=== PATIENT | female | born 1935 | race Two or more races ===

== ENCOUNTER 2018-09-30 07:47 | Day surgery (SDC) | payer MEDICARE ==
[~2018-09-30] VITALS: Ht 147.3 cm; Wt 48.1 kg
[~2018-09-30 07:47] MED LIST: ASCO500 PO; BENTYL20 MG PO; CLON.1 PO; Combigan Eye Dro5 ML BOTHEYES; Coq-1030 MG PO; FOLATE PO; Hair, Skin & N1 EACH PO; MECL25 PO; Norco 5-325 Ta1 EACH PO; ROSU10TA PO; Valium5 MG PO
--- NOTE | 2018-09-30 08:18 | NUR ---
History, Chart, Medications and Allergies reviewed before start of procedure. Lungs clear T/O to Auscultation. Patient confirms NPO status and agrees with scheduled surgery. Patient States Post-Procedure ride home has been arranged.
--- NOTE | 2018-09-30 08:32 | NUR ---
09/30/18 0832 Caly Lilly PATIENT DETERMINED TO BE ASA APPROPRIATE FOR MODERATE SEDATION WITH FENTANYL/VERSED DUE TO AGE PER DR RAMRIEZ. 3-LEAD EKG REVIEWED WITH PHYSICIAN PRIOR TO START OF PROCEDURE.PATIENT CONFIRMS NPO STATUS AND AGREES WITH SCHEDULED PROCEDURE.History, Chart, Medications and Allergies reviewed before start of procedure.MONITOR INTACT WITH CONTINUOUS PULSE OXIMETRY AND INTERMITTENT BP.O2 VIA N/C INTACT THROUGHOUT SEDATION/PROCEDURE.HURRICAINE SPRAY TO OROPHARYX.Bite Block Placed
== END 2018-09-30 22:50 | disposition home or self-care (01) ==
LOC: ORSCMMR 07:47 → ORD 09:00 → ORSCMMR 09:00
PROVIDERS: Internal Medicine Gastroenterology
PROC: 0DB48ZX Excision of Esophagogastric Junction, Via Natural or Artificial Opening Endoscopic, Diagnostic (ICD-10-PCS; principal; 2018-09-30 09:00)
PROC: 0DB58ZX Excision of Esophagus, Via Natural or Artificial Opening Endoscopic, Diagnostic (ICD-10-PCS; principal; 2018-09-30 09:00)
PROC: 0D758ZZ Dilation of Esophagus, Via Natural or Artificial Opening Endoscopic (ICD-10-PCS; principal; 2018-09-30 09:00)
PROC: 0DB68ZX Excision of Stomach, Via Natural or Artificial Opening Endoscopic, Diagnostic (ICD-10-PCS; principal; 2018-09-30 09:00)
DX: K21.9 Gastro-esophageal reflux disease without esophagitis (principal); K22.2 Esophageal obstruction; K29.70 Gastritis, unspecified, without bleeding; K44.9 Diaphragmatic hernia without obstruction or gangrene; E78.00 Pure hypercholesterolemia, unspecified; Z79.899 Other long term (current) drug therapy
CPT/HCPCS: 88305; 88312; 88341; 88342; C1726; J2250; J3010; J7120

== ENCOUNTER → 2018-10-08 | Outpatient (CLI) | payer MEDICARE | END | disposition home or self-care (01) | LOC: PLD 11:59 → LAB SHORT 11:59 | DX: L57.0 Actinic keratosis (principal) | CPT/HCPCS: 88305 ==

== ENCOUNTER → 2020-06-19 | Outpatient (CLI) | payer MEDICARE | END | disposition home or self-care (01) | LOC: PLD 07:35 → LAB SHORT 07:35 | DX: L82.1 Other seborrheic keratosis (principal); L91.0 Hypertrophic scar | CPT/HCPCS: 88305 ==

== ENCOUNTER → 2021-06-20 | Outpatient (CLI) | payer MEDICARE | LOC: LAB SHORT 19:04 → LAB 19:04 | PROVIDERS: Family Medicine | DX: Z12.4 Encounter for screening for malignant neoplasm of cervix (principal) | CPT/HCPCS: G0145 ==

== ENCOUNTER → 2022-12-18 | Outpatient (CLI) | payer MEDICARE ==
[~2022-12-18] MED LIST changes: +FAMO20 PO; +IMODIUM A-D2 M1 PO
[2022-12-18 18:58] LABS: BASOPHILS ABSOLUTE AUTO 0.04 K/mm3 (0.00-0.23); BASOPHILS PERCENT AUTO 1 % (0-2); EOSINOPHILS ABSOLUTE AUTO 0.15 K/mm3 (0.00-0.68); EOSINOPHILS PERCENT AUTO 3 % (0-6); Hematocrit 39.8 % (33.0-51.0); Hemoglobin 13.3 g/dL (11.5-16.0); IMMATURE GRAN ABSOLUTE AUTO 0.01 K/mm3 (0.00-0.10); IMMATURE GRAN PERCENT AUTO 0 % (0-1); LYMPHOCYTES ABSOLUTE AUTO 1.79 K/mm3 (0.84-5.20); LYMPHOCYTES PERCENT AUTO 34 % (21-46); MONOCYTES PERCENT AUTO 8 % (4-13); Mean Corpuscular HGB 31.9 pg (26.0-34.0); Mean Corpuscular HGB Conc 33.4 g/dL (31.5-36.5); Mean Corpuscular Volume 95 fL (80-100); Mean Platelet Volume 10.7 fL (9.1-12.4); NEUTROPHILS ABSOLUTE AUTO 2.88 K/mm3 (1.96-9.15); NEUTROPHILS PERCENT AUTO 55 % (41-73); Platelet Count 259 K/mm3 (150-400); RDW Coefficient Variation 12.5 % (11.7-14.2); Red Blood Cell Count 4.17 M/mm3 (3.80-5.20); White Blood Cell Count 5.27 K/mm3 (4.00-11.30)
[2022-12-18 20:19] LABS: Alanine Aminotransfer (ALT/SGP 22 U/L (12-78); Albumin, Blood 3.6 g/dL (3.4-5.0); Albumin/Globulin Ratio 1.1 (0.8-1.8); Alk Phos 49 U/L (50-136); Anion Gap 0 mmol/L (6-16); Aspartate Aminotrans (AST/SGOT 18 U/L (12-37); Bilirubin, Total 1.3 mg/dL (0.1-1.0); Blood Urea Nitrogen 19 mg/dL (8-24); Bun/Creatinine Ratio 18.4 (12.0-20.0); CHOL/HDL RATIO 5.7; CO2, Blood 33 mmol/L (21-32); Chloride, Blood 106 mmol/L (98-108); Cholesterol 263 mg/dL (50-200); Creatinine, Blood 1.03 mg/dL (0.40-1.00); Globulin, Blood 3.4 g/dL (2.2-4.0); Glomerular Filtration Rate 53 (60-); Glucose, Blood 100 mg/dL (70-99); HDL Cholesterol 46 mg/dL (>39); LDL/HDL RATIO 3.8; Low Density Lipoprotein Chol 177 mg/dL (0-110); Potassium, Blood 4.2 mmol/L (3.5-5.5); Sodium, Blood 139 mmol/L (136-145); Triglycerides 200 mg/dL (30-160); Very Low Density Lipoprot Chol 40 mg/dL (6-32)
== END | disposition home or self-care (01) ==
LOC: LAB 18:23 → LAB SHORT 18:23
PROVIDERS: Family Medicine
DX: I10 Essential (primary) hypertension (principal); E78.5 Hyperlipidemia, unspecified
CPT/HCPCS: 80053; 80061; 85025